=== PATIENT | female | born 1990 | race Caucasian/White ===

== ENCOUNTER 2022-02-26 17:44 | Emergency (ER) | payer BC, SELFPAY ==
--- NOTE | ~2022-02-26 | XR_ITS ---
EXAMINATION: XR ANKLE, LEFT XR FOOT, LEFT CLINICAL INFORMATION: Left ankle and left foot pain. COMPARISON: None TECHNIQUE: AP, lateral and oblique views of the left ankle and left foot; total 5 images. FINDINGS: There is no evidence of acute fracture or dislocation. No focal erosion is noted. No significant abnormality of the bones, joints or soft tissues is demonstrated. XR/XR ankle LT min 3V IMPRESSION: No acute or significant osseous abnormality noted in the left ankle and left foot.
--- NOTE | ~2022-02-26 | XR_ITS ---
EXAMINATION: XR ANKLE, LEFT XR FOOT, LEFT CLINICAL INFORMATION: Left ankle and left foot pain. COMPARISON: None TECHNIQUE: AP, lateral and oblique views of the left ankle and left foot; total 5 images. FINDINGS: There is no evidence of acute fracture or dislocation. No focal erosion is noted. No significant abnormality of the bones, joints or soft tissues is demonstrated. XR/XR foot LT min 3V IMPRESSION: No acute or significant osseous abnormality noted in the left ankle and left foot.
[2022-02-26 18:27] VITALS: BP 140/92; PULSE 99; RESP 16; TEMP 36.8; O2SAT 100; BMI 29.2
[2022-02-26 21:01] VITALS: BP 143/75; PULSE 90; RESP 16; TEMP 36.5; O2SAT 100
--- NOTE | 2022-02-26 21:34 | ED_ITS ---
HPI - General Adult General Chief complaint: Extremity Injury, Lower Stated complaint: leg pain Time Seen by Provider: 02/26/22 21:00 Source: patient Mode of arrival: ambulatory Limitations: no limitations History of Present Illness HPI narrative: 32-year-old female presents to ED for left ankle/foot pain for the past 3 weeks. Patient denies any trauma, swelling, leg swelling, calf pain, chest pain, or shortness. Patient states she finished course of steroids and muscle relaxer 2 weeks ago and symptoms still stayed the same. Patient's he had x-rays of ankle and foot that was normal. Patient also had ultrasound of left lower extremity which is negative for DVT. Related Data Previous Rx's Medication Instructions Recorded cyclobenzaprine 10 mg tablet 10 mg PO TID PRN 7 Days #21 tab 02/26/22 naproxen 500 mg tablet 500 mg PO BID PRN 10 Days #20 tab 02/26/22 prednisone 20 mg tablet 40 mg PO DAILY 5 Days #10 tab 02/26/22 Allergies Allergy/AdvReac Type Severity Reaction Status Date / Time No Known Allergies Allergy Verified 02/26/22 18:30 Review of Systems Review of Systems: Left ankle/foot pain Yes all other systems are reviewed and are negative PMFSH Social History Social History Advance Directives: No Advance Directives Information Provided: No Patient : No Physical Exam ED Vital Signs: Vital Signs - 24 hr 02/26/22 18:27 02/26/22 21:01 02/26/22 22:42 Temperature 98.2 F 97.7 F Pulse Rate 99 90 92 Respiratory Rate 16 16 16 Blood Pressure 140/92 H 143/75 H 136/84 Pulse Oximetry 100 100 99 BMI result Body Mass Index 29.2 Const General: cooperative, healthy appearing, comfortable, no acute distress, well developed, alert, awake and Physically active Orientation/consciousness: patient oriented x3 HENMT Head: Yes normal to inspection, Yes No palpable skull fracture present, Yes normocephalic and Yes atraumatic Eyes General: appearance normal, both eyes and all related structures Neck Neck: Yes normal visual inspection, Yes full ROM, Yes no lymphadenopathy, Yes no meningeal signs and Yes trachea midline Chest Chest palpation & inspection: normal inspection of the chest Resp Effort & Inspection: normal respiratory effort and able to speak in complete sentences Auscultation: clear to auscultation bilaterally Cardio Jugular venous distension: no JVD Heart sounds: S1 normal heart sound present and S2 normal heart sound present GI Inspection: Yes normal to inspection and No abdominal wall ecchymosis Palpation (GI): no guarding General: No CVA tenderness and Yes no CVA tenderness Back/Spine/Pelvis Back: no CVA tenderness, No CVA tenderness, No sacral edema and No back tenderness Skin General skin exam: no rashes or lesions noted and elasticity normal Neuro General: patient oriented x3, gait normal and no meningeal signs Cranial nerves: Yes CN's II-XII intact bilaterally Extrem General: Yes normal to inspection and Yes full ROM Ankle/foot/toe images: 1. Positive for tenderness on palpation. Negative for ecchymosis, crepitus, deformity, or erythema. Motor/neuro/vascular exam intact. Patient able to plantar and dorsiflex. Achilles intact. Rest of extremity negative for swelling, calf pain, leg swelling or any other concerning symptoms. Psych Appearance: grossly normal, well kempt and not disheveled Course Course Course Narrative: X-ray orders. Reevaluation(s) Reevaluation #1: Patient x-ray came back normal. Patient already had normal ultrasound of lower extremity to indicate DVT. Patient informed to follow-up with primary care provider to get MRI. Time: 21:57 Medical Decision Making MDM Narrative Medical decision making narrative: Ankle sprain Discharge Plan Discharge Clinical Impression: Ankle sprain and strain Patient Disposition: Home, Self-Care Instructions: Ankle Sprain (ED) Additional Instructions: Your x-rays came back normal. Recommend your primary care provider order MRI to evaluate your ankle/foot. Return to ED for any swelling, redness, bluish black discoloration, calf pain, chest pain, shortness of breath, coldness, hotness of extremity, fever, chills, inability to walk, or any other concerning symptoms. Prescriptions: New prednisone 20 mg tablet 40 mg PO DAILY 5 Days Qty: 10 0RF naproxen 500 mg tablet 500 mg PO BID PRN (Reason: pain) 10 Days Qty: 20 0RF cyclobenzaprine 10 mg tablet 10 mg PO TID PRN (Reason: muscle spasm) 7 Days Qty: 21 0RF Rx Instructions: side effect is drowsiness. Do not take at work or while driving. Best to take when going to sleep. Stand Alone Forms: Work/School Release Interventions: ED Discharge Assessment Last Done: 02/26/22 22:54 Discharge Date/Time: 02/26/22 22:58 Print Language: American
[2022-02-26] MEDS: NaPROXEN 500 MG TABLET PO (21:35)
[2022-02-26] MEDS: predniSONE 20 MG TABLET 60 MG PO (21:35)
[2022-02-26 22:42] VITALS: BP 136/84; PULSE 92; RESP 16; O2SAT 99
== END 2022-02-26 22:58 | disposition home or self-care (01) ==
PROVIDERS: Emergency Provider Emergency Medicine
DX: S93.402A Sprain of unspecified ligament of left ankle, initial encounter (principal); S96.912A Strain of unspecified muscle and tendon at ankle and foot level, left foot, initial encounter; X58.XXXA Exposure to other specified factors, initial encounter; Y93.9 Activity, unspecified; Y92.9 Unspecified place or not applicable; Y99.9 Unspecified external cause status
CPT/HCPCS: 73610; 73630; 99283

== ENCOUNTER 2022-04-23 07:06 | Outpatient (REF) | payer BC, SELFPAY ==
[2022-04-23 11:23] LABS: MANUAL DIFF FLAG NO
[2022-04-23 11:32] LABS: Basophils Percent Auto 0.7 % (0-2); Eosinophils Absolute Auto 0.2 X10*3/uL (0.0-0.4); Eosinophils Percent Auto 2.6 % (0-4); Hematocrit 39.6 % (37.0-47.0); Hemoglobin 12.8 g/dl (12.0-16.0); Imm Gran Abs Auto 0.01 X10*3/uL (0.00-0.03); Imm Gran Pct Auto 0.2 % (0.0-0.4); Lymphocytes Absolute Auto 1.9 X10*3/uL (1.2-4.9); Lymphocytes Percent Auto 32.7 % (20-40); Mean Corpuscular HGB Conc 32.3 g/dl (31.0-35.0); Mean Corpuscular Hemoglobin 29.8 pg (27.0-33.0); Mean Corpuscular Volume 92.3 fL (80.0-98.0); Mean Platelet Volume 10.6 fL (9.4-12.3); Monocytes Absolute Auto 0.5 X10*3/uL (0.1-1.2); Monocytes Percent Auto 9.2 % (2-11); Neutrophils Absolute Auto 3.1 x10*3/uL (2.0-8.3); Neutrophils Percent Auto 54.6 % (45-73); Platelet Count 409 X10*3/uL (160-400); Red Blood Count 4.29 X10*6/uL (4.20-5.50); Red Cell Distribution Width 13.1 % (11.0-16.0); White Blood Count 5.7 X10*3/uL (4.8-10.8)
[2022-04-23 12:03] LABS: Alanine Aminotransferase 8 U/L (0-31); Albumin Level 4.2 g/dL (3.5-5.0); Alkaline Phosphatase 65 U/L (39-117); Anion Gap 10 (12-20); Aspartate Amino Transferase 11 U/L (5-31); Bilirubin Total 0.5 mg/dL (0.0-1.0); Blood Urea Nitrogen 8 mg/dL (9-16); Calcium 8.9 mg/dL (8.4-10.2); Carbon Dioxide 26 mmol/L (22-29); Chloride 105 mmol/L (96-108); Estimated Glomerular Filt Rate > 60; Glucose Fasting 100 mg/dL (60-99); Potassium 4.7 mmol/L (3.3-5.1); Sodium 136 mmol/L (135-145); Total Protein 6.9 g/dL (6.5-8.0)
[2022-04-23 12:07] LABS: TSH reflex Free T4 1.09 uIU/mL (0.32-4.0); Vitamin D 25-OH Total 17.7 ng/mL (>30)
[2022-04-23 12:22] LABS: Folate 7.3 ng/mL (> or = 4.0); Vitamin B12 273 pg/mL (200-900)
== END 2022-04-23 07:07 | disposition home or self-care (01) ==
LOC: HO.HMGCLDS 07:06
PROVIDERS: Visit Provider Nurse Practitioner Family
DX: Z13.29 Encounter for screening for other suspected endocrine disorder (principal); Z76.89 Persons encountering health services in other specified circumstances
CPT/HCPCS: 36415; 80053; 82306; 82607; 82746; 84443; 85025

== ENCOUNTER 2022-10-22 12:23 | Emergency (ER) | payer BC, SELFPAY ==
[2022-10-22 12:27] VITALS: BP 130/78; PULSE 124; RESP 18; TEMP 36.7; O2SAT 99; BMI 29.2
--- NOTE | 2022-10-22 12:38 | ED_ITS ---
HPI - General Adult General Chief complaint: Dental/Oral Stated complaint: Jaw Neck Swelling Time Seen by Provider: 10/22/22 12:37 Source: patient Mode of arrival: ambulatory Limitations: no limitations History of Present Illness HPI narrative: 32-year-old female who was referred to the emergency from an urgent care clinic department for evaluation sore throat and right-sided neck swelling. Patient states that her symptoms began approximately 3 days prior and have gotten progressively worse. She states that she has pain in both sides of her throat and is having difficulty swallowing secondary to the pain. She states she noticed asymmetric swelling on the outside of her throat, left greater than right. She denied fever, chills, chest pain, shortness of breath, nausea, vomiting or diarrhea. She was seen at an urgent care clinic and they are concerned that she may have a peritonsillar abscess and may require drainage and IV antibiotics. Related Data Previous Rx's Medication Instructions Recorded cholecalciferol (vitamin D3) 1,250 1,250 mcg PO QWEEK #12 caps 04/23/22 mcg (50,000 unit) capsule hydroxyzine HCl 25 mg tablet 25 mg PO BEDTIME PRN anxiety #7 05/09/22 tabs penicillin V potassium 500 mg 500 mg PO TID 10 days #30 tabs 10/22/22 tablet prednisone 20 mg tablet 60 mg PO DAILY 5 days #15 tabs 10/22/22 Allergies Allergy/AdvReac Type Severity Reaction Status Date / Time No Known Allergies Allergy Verified 10/22/22 11:30 Review of Systems Review of Systems: Yes all other systems are reviewed and are negative [facility] Past Medical History [facility] Narrative: Past medical history: None. Past surgical history: None. Social history: She denies tobacco, alcohol and drug use. Medical History Encounter to establish care Left ankle pain Surgical History History of Family History Family History Mother No problems noted. Father Diabetes Heart attack Sister No problems noted. Brother No problems noted. Social History Social History Housing: House Patient Tobacco Use Status: Never used Tobacco e-Cigarette/Vaping Use: Never Used Advance Directives: No Advance Directives Information Provided: No service: No Current occupational status: employed Current occupation: office work Current occupational exposures/hazards: No Cognitive needs: No Hearing needs: No Vision needs: Yes Physical Exam ED Vital Signs: Vital Signs - 24 hr 10/22/22 12:27 Temperature 98.1 F Pulse Rate 124 H Respiratory Rate 18 Blood Pressure 130/78 Pulse Oximetry 99 Oxygen Delivery Method Room Air BMI result Body Mass Index 29.2 Const Other: Awake, alert, female patient, she does not have any difficulty swallowing her secretions, she does have a soft voice, she answers all questions appropriately HENMT Other: Head is normal cephalic and atraumatic pupils were equal round reactive light, sclera contact however normal, mouth revealed moist membranes, the patient has no trismus and is able to open her mouth widely, patient has posterior erythema with exudates, there is no asymmetry noted, her uvula is midline. Neck Other: Patient has bilateral tender cervical adenopathy left greater than right Chest Other: No chest wall tenderness Resp Other: Lungs clear to auscultation breath sounds symmetric bilaterally GI Other: Abdomen is soft, nontender, nondistended with normoactive bowel sounds Neuro Other: Nonfocal Course Course Course Narrative: 32-year-old female who was referred to the emergency department for evaluation of sore throat times asymmetric neck swelling. Vital signs did reveal an elevated pulse of 124. Patient is throat exam revealed no trismus, midline uvula, no asymmetric posterior swelling. The patient had a positive strep throat test at the urgent care facility. The patient's presentation is consistent streptococcal pharyngitis. I do not think that this patient needs IV antibiotics. Patient was started on penicillin 500 mg 3 times a day for 10 days and prednisone 60 mg once a day for 5 days. She was advised to take Tylenol for pain and fever. She was given printed and verbal instructions and discharged home. Discharge Plan Discharge Clinical Impression: Strep throat Patient Disposition: Home, Self-Care Instructions: Strep Throat (ED) Additional Instructions: This time, I do not think that you have a tonsil abscess since the back h your er throat looks very symmetric. You do have asymmetric lymph nodes, more on the right than the left but this is not unusual. At this time I do not think that you need IV antibiotics or further studies. Take penicillin 500 mg pills, 1 pill 3 times a day for 10 days. Make sure you complete the full 10 days. Take prednisone 20 mg pills, 3 pills once a day for 5 days. While you are taking prednisone, do not take any NSAIDs (Motrin, Advil, ibuprofen, Aleve, naproxen). Take Tylenol 500 mg pills, 2 pills every 4-6 hours as needed for pain or fever. Follow-up with your doctor in 2 days. Please return to the emergency department if your symptoms get worse or if you develop any symptoms that are concerning to you. Prescriptions: New prednisone 20 mg tablet 60 mg PO DAILY 5 Days Qty: 15 0RF penicillin V potassium 500 mg tablet 500 mg PO TID 10 Days Qty: 30 0RF No Action cholecalciferol (vitamin D3) 1,250 mcg (50,000 unit) capsule 1,250 mcg PO QWEEK Qty: 12 0RF hydroxyzine HCl 25 mg tablet 25 mg PO BEDTIME PRN (Reason: anxiety) Qty: 7 0RF Interventions: ED Discharge Assessment Last Done: 10/22/22 12:49 Discharge Date/Time: 10/22/22 12:49
== END 2022-10-22 12:49 | disposition home or self-care (01) ==
PROVIDERS: Emergency Provider Emergency Medicine Emergency Medical Services; PCP Nurse Practitioner Family
DX: J02.0 Streptococcal pharyngitis (principal)
CPT/HCPCS: 99282; 99283